=== PATIENT | male | born 1990 | race Native Hawaiian/Other Pacific Islander ===

== ENCOUNTER 2016-12-04 13:17 | Emergency (ER) | payer OTHER ==
[2016-12-04 13:27] VITALS: BP 119/59
[2016-12-04] MEDS ORDERED: BOOSTRIX IM ONE (14:41)
[2016-12-04] MEDS ORDERED: MOTRIN PO ONE (14:42)
--- NOTE | 2016-12-04 15:12 | XRay Report ---
LEFT HAND, 3 VIEWS History: Injury, pain A complex comminuted fracture of the distal phalanx of the fourth digit is identified. This appears to represent a crush injury. There is intra-articular extension at the distal interphalangeal joint. The remaining bony structures and joint spaces are unremarkable. Soft tissue swelling of the fourth digit is noted. Impression: Traumatic fracture, distal phalanx, fourth digit.
--- NOTE | 2016-12-04 16:02 | Emergency Department Report ---
Entered by ROZ GILES, acting as scribe for YOSI BOYLE NP. Upper Extremity - HPI Chief Complaint: Extremity Injury, Upper Stated Complaint: LT RING FINGER SWOLLEN/POSS INFECTION Time Seen by Provider: 12/04/16 14:21 Upper Extremity: Left Ring Finger Occurred When: >5 Days (7 DAYS) Mechanism: Crush (wood fell on left ring finger) Severity: severe (8/10) Symptoms: Yes Pain with Movement (left ring finger pain), Yes Limited Range of Movement (left finger limited ROM due to swelling and pain), Yes Swelling (left ring finger), No Deformity, No Numbness, No Weakness, No Bruising/Ecchymosis, No Laceration or Abrasion Other History: 26 y/o male with no significant PMHx c/o left ring finger pain that began 1 week ago. Patient states that a piece of wood fell on his left ring finger 1 week ago, and subsequently bent his finger. Rates pain an 8/10 in severity, which he describes as aching in quality. Associated symptoms include left finger swelling with slight purulent drainage, but he denies nausea, vomiting, fever, chills, numbness, and tingling. Not UTD with tetanus. NKDA. ED Review of Systems ROS: Stated complaint: LT INDEX FINGER SWOLLEN/POSS INFECTION Other details as noted in HPI Comment: All other systems reviewed and negative Constitutional: no symptoms reported. denies: chills, fever Eyes: denies: eye pain, eye discharge, vision change ENT: denies: ear pain, throat pain Respiratory: denies: cough, shortness of breath, wheezing Cardiovascular: denies: chest pain, palpitations Endocrine: no symptoms reported Gastrointestinal: denies: abdominal pain, nausea, diarrhea Genitourinary: denies: urgency, dysuria Musculoskeletal: joint swelling (left ring finger), other (left ring finger pain with minimal purulent drainage). denies: back pain, arthralgia Skin: denies: rash, lesions Neurological: denies: headache, weakness, numbness, paresthesias, other ( tingling) Psychiatric: denies: anxiety, depression Hematological/Lymphatic: denies: easy bleeding, easy bruising ED Past Medical Hx - Past Medical History Previous Medical History?: No - Surgical History Past Surgical History?: No - Social History Smoking Status: Current Every Day Smoker Substance Use Type: Alcohol, Marijuana, Prescribed - Medications Home Medications: Home Medications Medication Instructions Recorded Confirmed Last Taken Type Acetaminophen/Codeine [Tylenol #3] 1 tab PO Q6H PRN #12 tab 12/04/16 Unknown Rx Cephalexin [Keflex] 500 mg PO Q6HR #40 capsule 12/04/16 Unknown Rx Ibuprofen [Motrin] 600 mg PO Q8H PRN #15 tablet 12/04/16 Unknown Rx Sulfamethoxazole/Trimethoprim 1 each PO BID #20 tablet 12/04/16 Unknown Rx [Bactrim DS TAB] Upper Extremity Exam - Exam General: Vital signs noted. General: No Limitations, alert, in no apparent distress PT is alert and non toxic head is atraumatic and normocelphalic no trismus, no drooling no acute resp distress, lung sounds clear keren cardiac, rrr GCS 15, no focal weakness normal mood and affect Head and Torso: No HEENT Abnormality, No Neck Tenderness, No Chest/Lungs Abnormality, No Abdominal Tenderness, No Back Tenderness Shoulder Exam: Yes Normal Range of Motion in Shoulder, No Shoulder Tenderness, No Clavicle Tenderness, No Shoulder Deformity, No AC Joint Tenderness Arm Exam: No Arm/Humerus Tenderness, No Arm Deformity Elbow: Yes Normal Range of Motion in Elbow, No Elbow Tenderness, No Elbow Deformity Forearm: No Forearm Tenderness, No Forearm Deformity, No Pain with Pronation, No Pain with Supination Wrist: Yes Normal ROM in Wrist, No Wrist Tenderness, No Wrist Deformity, No Snuffbox Tenderness, No Pain with Axial Thumb Compression Hand: Yes Digit Tenderness (left ring finger), Yes Normal ROM in Digit(s) ( limited range of motion in left ring finger due to pain and swelling), Yes Digit (s) Deformity (left ring finger swelling present with minimal purulent drainage , L ring finger with Mallet finger ), Yes Tendon Dysfunction (pt unable to extend L ring finger fully ), No Hand Tenderness, No Hand Deformity CMS Exam: Yes Normal Distal Pulses, Yes Normal Capillary Refill, Yes Normal Distal Sensation, No Broken Skin ED Course Vital Signs 12/04/16 13:24 Temperature 97.5 F L Pulse Rate 51 L Respiratory 20 Rate Blood Pressure 119/59 O2 Sat by Pulse 100 Oximetry - Reevaluation(s) Reevaluation #1: 12/04/16 15:57 PT is aware of XR results and plan of care. PT has also been seen by Dr Cee. PT is aware of his need for close orthopedic follow up. PT has no questions at this time. Reevaluation #2: 12/04/16 17:08 PT placed in splint by nursing staff. Pt NVI. - Pulse Oximetry Interpretation Digit-Finger Initial Pulse Oximetry Readin Actions Taken: none ED Medical Decision Making - Radiology Data Radiology results: report reviewed XR hand - L ring finger fx - Differential Diagnosis fracture, contusion, cellulitis, paryonchia Critical Care Time: No Critical care attestation.: If time is entered above; I have spent that time in minutes in the direct care of this critically ill patient, excluding procedure time. ED Disposition Clinical Impression: Cellulitis of finger of left hand Finger fracture, left Qualifiers: Encounter type: initial encounter Finger: ring finger Fracture type: closed Phalanx: distal Fracture alignment: displaced Qualified Code(s): S62.635A - Displaced fracture of distal phalanx of left ring finger, initial encounter for closed fracture Disposition: DISCHARGED TO HOME OR SELFCARE Is pt being admited?: No Does the pt Need Aspirin: No Condition: Stable Instructions: Finger Fracture (ED), Cellulitis (ED) Additional Instructions: No driving or ETOH After taking Tylenol #3 for your pain Prescriptions: Acetaminophen/Codeine [Tylenol #3] 1 tab PO Q6H PRN #12 tab PRN Reason: Pain , Severe (7-10) Cephalexin [Keflex] 500 mg PO Q6HR #40 capsule Ibuprofen [Motrin] 600 mg PO Q8H PRN #15 tablet PRN Reason: Pain Sulfamethoxazole/Trimethoprim [Bactrim DS TAB] 1 each PO BID #20 tablet Referrals: NIGEL DORAN MD [Primary Care Provider] - 3-5 Days CARLIN ESCALANTE MD [Staff Physician] - 3-5 Days [facility] [Outside] - 3-5 Days [facility] [Outside] - 3-5 Days ANJU CANTU MD [Staff Physician] - 3-5 Days Time of Disposition: 16:01 This documentation as recorded by the CHAN melgoza JASMINE,accurately reflects the service I personally performed and the decisions made by ,YOSI BOYLE, EDGAR.
== END 2016-12-04 17:14 | disposition home or self-care (01) ==
LOC: ED 13:17
DX: S62.635A Displaced fracture of distal phalanx of left ring finger, initial encounter for closed fracture (principal); L03.012 Cellulitis of left finger; F17.200 Nicotine dependence, unspecified, uncomplicated; F12.10 Cannabis abuse, uncomplicated; W18.30XA Fall on same level, unspecified, initial encounter; Y93.9 Activity, unspecified; Y92.9 Unspecified place or not applicable; Y99.9 Unspecified external cause status
CPT/HCPCS: 90471; 90715; 99283